=== PATIENT | male | born 1955 | race Caucasian/White ===

== ENCOUNTER → 2019-01-26 05:59 | Outpatient (CLI) | payer OTHER, SELFPAY ==
--- NOTE | 2019-01-26 10:19 | STRESSREP ---
Stress Test Report Pharmacologic myocardial perfusion stress test. 63-year-old male with a history of shortness of breath. Medications: None. Stress protocol: Resting EKG demonstrates sinus rhythm with a rate of 64 bpm right bundle branch block is noted resting blood pressures 120/80 mmHg. 0.4 mg of regadenoson was infused per usual protocol followed by rapid intravenous saline flush injection continuous EKG monitoring was performed. The maximum heart rate was 88 bpm which was 55% of maximum predicted heart rate the maximum workload was 1 metabolic equivalent. The resting blood pressures 120/80 with a final blood pressure 118/78. Myocardial perfusion protocol. 14.6 mCi of technetium 99m sestamibi was injected at rest. 0.4 mg of regadenoson was infused per usual protocol peak infusion 44.9 mCi of technetium 99m sestamibi was injected stress images were obtained stress and rest images were reconstructed and compared in the short axis vertical long horizontal long axis. Gated images were also obtained Perfusion SPECT analysis: Review of the stress images demonstrate normal uptake of tracer noted in the septum anterior wall and lateral wall. The inferior wall has significant GI uptake artifact on the stress and resting images. No obvious areas of reversibility or infarct however noted. No ischemia is noted. Gated SPECT analysis: The gated ejection fraction is noted to be 71%. Conclusion: Probably normal pharmacologic myocardial perfusion stress test. Preserved ejection fraction.
== END ==
PROVIDERS: Family Provider Internal Medicine; PCP Internal Medicine; Referring Provider Internal Medicine; Visit Provider Internal Medicine
DX: R06.09 Other forms of dyspnea (principal)
CPT/HCPCS: 78452; 93017; A9500; A4216; J2785